=== PATIENT | male | born 1960 | race Caucasian/White ===

== ENCOUNTER → 2016-12-22 | Outpatient (CLI) | payer MEDICARE, MEDICAID ==
[2016-12-22 10:48] LABS: ABSOLUTE EOSINOPHILS # (AUTO) 0.2 10^3/uL (0.0-0.6); ABSOLUTE LYMPHOCYTES (AUTO) 1.9 10^3/uL (0.5-4.7); ABSOLUTE MONOCYTES (AUTO) 0.4 10^3/uL (0.1-1.4); ABSOLUTE NEUT (AUTO) 2.9 10^3/uL (1.7-8.2); BASOPHILS % (AUTO) 0.6 % (0-2); HEMATOCRIT 44.6 % (37.9-51.0); HEMOGLOBIN 15.2 g/dL (13.5-17.0); LYMPHOCYTES % (AUTO) 34.3 % (13-45); MEAN CORPUSCULAR HEMOGLOBIN 30.8 pg (27.0-33.4); MEAN CORPUSCULAR HGB CONC 34.1 g/dL (32.0-36.0); MEAN CORPUSCULAR VOLUME 90 fl (80-97); MONOCYTES % (AUTO) 8.1 % (3-13); RED BLOOD COUNT 4.95 10^6/uL (4.35-5.55); RED CELL DISTRIBUTION WIDTH 13.5 % (11.5-14.0); WHITE BLOOD COUNT 5.4 10^3/uL (4.0-10.5)
[2016-12-22 11:12] LABS: ALANINE AMINOTRANSFERASE 56 U/L (21-72); ALBUMIN 4.6 g/dL (3.5-5.0); ALKALINE PHOSPHATASE 158 U/L (38-126); ANION GAP 10 (5-19); ASPARTATE AMINO TRANSFERASE 39 U/L (17-59); BLOOD UREA NITROGEN 20 mg/dL (7-20); C-REACTIVE PROTEIN 5.5 mg/L (<10.0); CALCIUM 9.9 mg/dL (8.4-10.2); CARBON DIOXIDE 29 mmol/L (22-30); CHLORIDE 102 mmol/L (98-107); CREATINE KINASE 119 U/L (55-170); CREATININE RESULT 0.95 mg/dL (0.52-1.25); GLUCOSE 117 mg/dL (75-110); POTASSIUM 5.1 mmol/L (3.6-5.0); TOTAL PROTEIN 7.7 g/dL (6.3-8.2); URIC ACID 5.3 mg/dL (3.5-8.5)
[2016-12-22 11:17] LABS: ERYTHROCYTE SEDIMENTATION RATE 10 mm/hr (0-20)
== END ==
LOC: OD 09:47
PROVIDERS: ATTEND Internal Medicine Rheumatology
DX: M06.4 Inflammatory polyarthropathy (principal); M25.50 Pain in unspecified joint; M79.1 Myalgia; E03.8 Other specified hypothyroidism; G89.4 Chronic pain syndrome; M54.5 Low back pain; Z79.899 Other long term (current) drug therapy
CPT/HCPCS: 36415; 80053; 82550; 84550; 85025; 85652; 86038; 86140; 86200; 86430

== ENCOUNTER → 2017-11-20 | Outpatient (CLI) | payer MEDICARE, MEDICAID ==
--- NOTE | 2017-11-20 11:10 | RADIOLOGY REPORT (SQ) ---
EXAM DESCRIPTION: CHEST PA/LATERAL COMPLETED DATE/TIME: 11/20/2017 10:37 am REASON FOR STUDY: COUGH COMPARISON: 03/27/2016 NUMBER OF VIEWS: Two view. TECHNIQUE: Frontal and lateral radiographic views of the chest acquired. LIMITATIONS: None. FINDINGS: LUNGS AND PLEURA: No opacities, masses or pneumothorax. No pleural effusion. MEDIASTINUM AND HILAR STRUCTURES: No masses or contour abnormalities. HEART AND VASCULATURE: Heart normal size. No evidence for failure. BONY STRUCTURES: No acute findings. HARDWARE: None. OTHER: No other significant finding. IMPRESSION: NO SIGNIFICANT RADIOGRAPHIC FINDING IN THE CHEST. TECHNICAL DOCUMENTATION: JOB ID: [id number] [employer]- All Rights Reserved
== END ==
LOC: OD 10:26
PROVIDERS: ATTEND Physician Assistant
DX: R05 Cough (principal)
CPT/HCPCS: 71046

== ENCOUNTER → 2019-02-25 | Outpatient (CLI) | payer MEDICARE, MEDICAID ==
--- NOTE | 2019-02-25 11:29 | RADIOLOGY REPORT (SQ) ---
EXAM DESCRIPTION: U/S ABDOMEN LIMITED W/O DOP COMPLETED DATE/TIME: 02/25/2019 10:35 am REASON FOR STUDY: FATTY (CHANGE OF) LIVER, NOT ELSEWHERE CLASSIFIED K76.0 FATTY (CHANGE OF) LIVER, NOT ELSEWHERE CLASSIFIED COMPARISON: 08/03/2011 TECHNIQUE: Dynamic and static grayscale images acquired of the abdomen and recorded on PACS. Additio nal selected color Doppler and spectral images recorded. LIMITATIONS: None. FINDINGS: PANCREAS: Poorly seen. LIVER: Increased echogenicity. Hepatomegaly. 21.1 cm. LIVER VASCULATURE: Normal directional flow of the main portal vein and hepatic veins. GALLBLADDER: There is some echogenic material in the gallbladder. No wall thickening. No pericholec ystic fluid. ULTRASOUND-DETECTED CRUZ'S SIGN: Negative. INTRAHEPATIC DUCTS AND COMMON DUCT: CBD and intrahepatic ducts normal caliber. No filling defects. INFERIOR VENA CAVA: Not imaged. AORTA: No aneurysm. RIGHT KIDNEY: Normal size, 13.8 cm. Normal echogenicity. No solid or suspicious masses. No hydroneph rosis. No calcifications. PERITONEAL AND RIGHT PLEURAL SPACE: No ascites or effusions. OTHER: No other significant findings. IMPRESSION: Hepatomegaly. Fatty infiltration of the liver. Gallbladder sludge. No evidence of cho lecystitis. TECHNICAL DOCUMENTATION: JOB ID: [id number] [employer]- All Rights Reserved Reading location - IP/workstation name: [email or web address]
== END ==
LOC: RAD 09:32
PROVIDERS: ATTEND Physician Assistant
DX: K76.0 Fatty (change of) liver, not elsewhere classified (principal)
CPT/HCPCS: 76705

== ENCOUNTER 2019-10-18 07:42 | Emergency (ER) | payer MEDICARE, MEDICAID ==
[2019-10-18 08:44] LABS: ABSOLUTE LYMPHOCYTES (AUTO) 1.3 10^3/uL (0.5-4.7); ABSOLUTE MONOCYTES (AUTO) 0.7 10^3/uL (0.1-1.4); ABSOLUTE NEUT (AUTO) 11.5 10^3/uL (1.7-8.2); BASOPHILS % (AUTO) 0.1 % (0-2); HEMATOCRIT 46.8 % (37.9-51.0); HEMOGLOBIN 15.8 g/dL (13.5-17.0); LYMPHOCYTES % (AUTO) 9.3 % (13-45); MEAN CORPUSCULAR HEMOGLOBIN 30.3 pg (27.0-33.4); MEAN CORPUSCULAR HGB CONC 33.7 g/dL (32.0-36.0); MEAN CORPUSCULAR VOLUME 90 fl (80-97); MONOCYTES % (AUTO) 5.4 % (3-13); PLATELET COUNT 277 10^3/uL (150-450); RED CELL DISTRIBUTION WIDTH 13.3 % (11.5-14.0); SEGMENTED NEUTROPHILS % (AUTO) 85.2 % (42-78); TOTAL CELLS COUNTED % (AUTO) 100 %; WHITE BLOOD COUNT 13.6 10^3/uL (4.0-10.5)
[2019-10-18 08:50] LABS: ALBUMIN 4.8 g/dL (3.5-5.0); ALKALINE PHOSPHATASE 153 U/L (38-126); ANION GAP 13 (5-19); ASPARTATE AMINO TRANSFERASE 29 U/L (17-59); BILIRUBIN,DIRECT 0.2 mg/dL (0.0-0.4); BILIRUBIN,TOTAL 1.3 mg/dL (0.2-1.3); BLOOD UREA NITROGEN 13 mg/dL (7-20); CARBON DIOXIDE 27 mmol/L (22-30); CHLORIDE 97 mmol/L (98-107); GLUCOSE 179 mg/dL (75-110); POTASSIUM 4.6 mmol/L (3.6-5.0); TOTAL PROTEIN 8.6 g/dL (6.3-8.2)
[2019-10-18] MEDS ORDERED: METOCLOPRAMIDE HCL INJ/PF 10 MG/2 ML SDV IV ONE (10:00)
[2019-10-18] MEDS ORDERED: MORPHINE SULFATE 10 MG/ML INJ IV ONE (10:00)
--- NOTE | 2019-10-18 10:12 | ER Document Report ---
ED General - General Chief Complaint: Vomiting Stated Complaint: VOMITING/ABDOMINAL PAIN Time Seen by Provider: 10/18/19 10:00 Primary Care Provider: CHE FULLER PA [Primary Care Provider] - Follow up as needed TRAVEL OUTSIDE OF THE [place] IN LAST 30 DAYS: No - HPI Notes: Patient is a 59-year-old male with history of hypertension, coronary artery disease, diabetes who presents complaining of generalized abdominal pain, worse in his epigastrium has been fairly constant since last night with associated nausea and vomiting. Patient states that he has had some black stools recently and is not on any blood thinners. He has had decreased p.o. intake. He is still urinating normally. No surgical history to his abdomen. Denies any headache, fever, neck pain, URI, sore throat, chest pain, palpitations, syncope, cough, shortness of breath, wheeze, dyspnea,diarrhea, urinary retention, dysuria, hematuria, back pain, or rash. - Related Data Allergies/Adverse Reactions: gabapentin Adverse Reaction (Verified 10/18/19 09:02) tramadol [Tramadol] Adverse Reaction (Verified 10/18/19 07:58) Home Medications: patient states unable to provide at this time Past Medical History - Social History Smoking Status: Never Smoker Chew tobacco use (# tins/day): No Frequency of alcohol use: Rare Drug Abuse: None Family History: Reviewed & Not Pertinent Patient has suicidal ideation: No Patient has homicidal ideation: No - Past Medical History Cardiac Medical History: Reports: Hx Coronary Artery Disease - high cholesterol, Hx Heart Attack - [place] x 2 (2006), Hx Hypertension Pulmonary Medical History: Reports: Hx Pneumonia - walking pnemonia years ago Denies: Hx Asthma, Hx Bronchitis, Hx COPD Neurological Medical History: Denies: Hx Cerebrovascular Accident, Hx Seizures Endocrine Medical History: Reports: Hx Diabetes Mellitus Type 2 GI Medical History: Reports: Hx Gastroesophageal Reflux Disease Musculoskeletal Medical History: Reports Hx Arthritis - generalized Past Surgical History: - Immunizations Hx Diphtheria, Pertussis, Tetanus Vaccination: Yes Hx Pneumococcal Vaccination: 11/19/07 Review of Systems - Review of Systems -: Yes All other systems reviewed and negative Physical Exam - Vital signs Vitals: Temp Pulse Resp BP 97.6 F 65 18 151/70 H 10/18/19 07:51 10/18/19 07:51 10/18/19 07:51 10/18/19 07:51 - Notes Notes: PHYSICAL EXAMINATION: GENERAL: Well-appearing, well-nourished and in no acute distress. HEAD: Atraumatic, normocephalic. EYES: Pupils equal round and reactive to light, extraocular movements intact, sclera anicteric, conjunctiva are normal. ENT: Nares patent and without discharge. oropharynx clear without exudates. No tonsilar hypertrophy or erythema. Moist mucous membranes. NECK: Normal range of motion, supple without lymphadenopathy LUNGS: Breath sounds clear to auscultation bilaterally and equal. No wheezes rales or rhonchi. HEART: Regular rate and rhythm without murmurs, rubs, gallops. ABDOMEN: Soft, nondistended abdomen. No guarding, no rebound. Normal bowel sounds present. No CVA tenderness bilaterally. + reproducible moderate tenderness to palp of his epigastrum. + mild mid abd tenderness. Rectal: pt would not allow due to issues as a child- will provide stool sample. Musculoskeletal: FROM to passive/active. Strength 5+/5. Extremities: No cyanosis, clubbing, or edema b/l. Peripheral pulses 2+. Capillary refill less than 3 seconds. NEUROLOGICAL: Normal speech, normal gait. PSYCH: Normal mood, normal affect. SKIN: Warm, Dry, normal turgor, no rashes or lesions noted. Course - Re-evaluation Re-evalutation: 10/18/19 13:40 Patient is an afebrile, well-hydrated, 59-year-old male who presents to the ED with epigastric abdominal pain, nausea, vomiting, suspect viral/inflammatory. Vitals are acceptable without any significant tachycardia, tachypnea, or hypoxia. PE is otherwise unremarkable. CBC, CMP, lipase, guiac, CT scan unremarkable for any acute pathology. Patient was given Zofran and the GI cocktail. Patient states the GI cocktail did significantly improve his epigastric symptoms. No other labs or imaging warranted at this time based on H&P. Patient is tolerating p.o. without difficulties and is nontoxic-appearing. Low suspicion/risk for acute appendicitis, bowel obstruction, acute cholecystitis, perforated diverticulitis, incarcerated hernia, pancreatitis, perforated ulcer, peritonitis, sepsis, testicular torsion, or other systemic emergent condition at this time. Patient is aware that his condition can change from initial presentation and he needs to monitor symptoms closely and seek medical attention if any acute changes. I will send him home with a p rescription for omeprazole and Carafate as well as Zofran. Conservative measures otherwise for symptoms. Recheck with PCM in 3-5 days. Consider consult with a manager social work. Return to the ED with any worsening/concerning symptoms otherwise as reviewed in discharge. Patient is in agreement. - Vital Signs Vital signs: Temp Pulse Resp BP Pulse Ox 97.6 F 65 18 151/70 H 10/18/19 07:51 10/18/19 07:51 10/18/19 07:51 10/18/19 07:51 - Laboratory Result Diagrams: 10/18/19 08:30 10/18/19 08:30 Laboratory results interpreted by me: 10/18/19 10/18/19 10/18/19 08:30 08:30 11:20 WBC 13.6 H Lymph % (Auto) 9.3 L Absolute Neuts (auto) 11.5 H Seg Neutrophils % 85.2 H Chloride 97 L Glucose 179 H Alkaline Phosphatase 153 H Total Protein 8.6 H Urine Protein 30 H Urine Glucose (UA) >=500 H Urine Ketones TRACE H Urine Blood SMALL H Discharge - Discharge Clinical Impression: Epigastric abdominal pain Condition: Stable Disposition: HOME, SELF-CARE Instructions: Abdominal Pain ([facility]), Antinausea Medication ([facility]) Additional Instructions: Maintain adequate fluid and food intake [place] diet ([employer] Bananas, rice, apples, toast, etc tylenol if needed Monitor for any worsening symptoms Make sure you are staying hydrated enough to urinate and have normal BM's Recheck with your PCM in 3-5 days Consider consult with Gastroenterology for ongoing/worsening symptoms Return to the ED with any worsening symptoms and/or development of fever, headache, chest pain, palpitations, syncope, shortness of breath, trouble breathing, abdominal pain, n/v/d, blood in stool/urine, weakness, or other worsening symptoms that are concerning to you. Prescriptions: Sucralfate [Carafate] 1 gm PO BID #100 ml Omeprazole 20 mg PO DAILY #30 tablet. Ondansetron [Zofran Odt 4 mg Tablet] 1 - 2 tab PO Q4H PRN #15 tab.rapdis PRN Reason: For Nausea/Vomiting Forms: Elevated Blood Pressure Referrals: CHE FULLER PA [Primary Care Provider] - Follow up as needed BELKYS UMANA MD [ACTIVE STAFF] - Follow up as needed TONNY DOTSON MD [ACTIVE STAFF] - Follow up as needed
[2019-10-18] MEDS ORDERED: LIDOCAINE 2% VISCOUS SOLN 20 ML UDCUP PO ONE (11:51)
[2019-10-18] MEDS ORDERED: MAG HYDROX/AL HYDROX/SIMETH SUSP 30 ML UDCUP PO ONE (11:51)
[2019-10-18] MEDS ORDERED: METOCLOPRAMIDE HCL ORAL SOLN 10 MG/10 ML UDCUP PO ONE (11:51)
[2019-10-18 11:57] LABS: APPEARANCE,URINE CLEAR; BILIRUBIN,URINE NEGATIVE (NEGATIVE); COLOR,URINE YELLOW; GLUCOSE, URINE >=500 mg/dL (NEGATIVE); KETONES,URINE TRACE mg/dL (NEGATIVE); LEUKOCYTE ESTERASE,URINE NEGATIVE (NEGATIVE); NITRITE,URINE NEGATIVE (NEGATIVE); PROTEIN,URINE 30 mg/dL (NEGATIVE); URINE SPECIFIC GRAVITY 1.014; UROBILINOGEN,URINE NEGATIVE mg/dL (<2.0)
--- NOTE | 2019-10-18 13:34 | RADIOLOGY REPORT (SQ) ---
EXAM DESCRIPTION: CT ABD/PELVIS WITH IV ONLY COMPLETED DATE/TIME: 10/18/2019 1:20 pm REASON FOR STUDY: abdominal pain COMPARISON: None. TECHNIQUE: CT scan of the abdomen and pelvis performed using helical scanning technique with dynamic intravenous contrast injection. No oral contrast. Images reviewed with lung, soft tissue, and bone windows. Reconstructed coronal and sagittal MPR images reviewed. Delayed images for evaluation of the urinary system also acquired. All images stored on PACS. All CT scanners at this facility use dose modulation, iterative reconstruction, and/or weight based d osing when appropriate to reduce radiation dose to as low as reasonably achievable (ALARA). [facility]: Dose Right [facility]: CareDose [facility]: Dose Right [facility]: Teradose 4D [facility]: Membersuite CONTRAST TYPE AND DOSE: contrast/concentration: Isovue 350.00 mg/ml; Total Contrast Delivered: 99.0 ml; Total Saline Delivered: 57.0 ml RENAL FUNCTION: BUN 13 creatinine 0.87. RADIATION DOSE: CT Rad equipment meets quality standard of care and radiation dose reduction techniq ues were employed. CTDIvol: 20.5 - 21.1 mGy. DLP: 2458 mGy-cm.. LIMITATIONS: None. FINDINGS: LOWER CHEST: No significant findings. No nodules or infiltrates. LIVER: Normal size. No masses. No dilated ducts. SPLEEN: Normal size. No focal lesions. PANCREAS: No masses. No significant calcifications. No adjacent inflammation or peripancreatic fluid collections. Pancreatic duct not dilated. GALLBLADDER: No identified stones by CT criteria. No inflammatory changes to suggest cholecystitis. ADRENAL GLANDS: No significant masses or asymmetry. RIGHT KIDNEY AND URETER: No solid masses. No significant calcifications. No hydronephrosis or hyd roureter. LEFT KIDNEY AND URETER: No solid masses. No significant calcifications. No hydronephrosis or hydr oureter. AORTA AND VESSELS: No aneurysm. No dissection. Renal arteries, SMA, celiac without stenosis. RETROPERITONEUM: No retroperitoneal adenopathy, hemorrhage or masses. BOWEL AND PERITONEAL CAVITY: No masses or inflammatory changes. No free fluid or peritoneal masses. APPENDIX: Not visualized. PELVIS: No mass. No free fluid. Normal bladder. ABDOMINAL WALL: No masses. No hernias. BONES: No significant or acute findings. Degenerative changes in the spine. OTHER: No other significant finding. IMPRESSION: NO SIGNIFICANT OR ACUTE FINDING IN THE ABDOMEN OR PELVIS ON CT SCAN WITH IV CONTRAST. TECHNICAL DOCUMENTATION: JOB ID: [id number] Quality ID # [id number]: Final reports with documentation of one or more dose reduction techniques (e.g., Au tomated exposure control, adjustment of the mA and/or kV according to patient size, use of iterative reconstruction technique) 2010 [employer] All Rights Reserved Reading location - IP/workstation name: [email or web address]
[2019-10-18 14:45] VITALS: BP 148/80
== END 2019-10-18 14:45 | disposition home or self-care (01) ==
LOC: ER 07:42
DX: R10.13 Epigastric pain (principal); I10 Essential (primary) hypertension; I25.10 Atherosclerotic heart disease of native coronary artery without angina pectoris; E11.9 Type 2 diabetes mellitus without complications; R11.2 Nausea with vomiting, unspecified; E78.00 Pure hypercholesterolemia, unspecified; I25.2 Old myocardial infarction
CPT/HCPCS: 99284; 96374; 96375; 36415; 83690; 85025; 80053; 81001; 74177; J3490; A9270 ×2; J2765; J2270

== ENCOUNTER 2019-10-25 23:56 | Emergency (ER) | payer MEDICARE, MEDICAID ==
[2019-10-26 01:17] LABS: ABSOLUTE EOSINOPHILS # (AUTO) 0.1 10^3/uL (0.0-0.6); ABSOLUTE LYMPHOCYTES (AUTO) 1.1 10^3/uL (0.5-4.7); ABSOLUTE MONOCYTES (AUTO) 0.9 10^3/uL (0.1-1.4); ABSOLUTE NEUT (AUTO) 6.6 10^3/uL (1.7-8.2); BASOPHILS % (AUTO) 0.5 % (0-2); HEMATOCRIT 43.5 % (37.9-51.0); HEMOGLOBIN 14.6 g/dL (13.5-17.0); MEAN CORPUSCULAR HEMOGLOBIN 30.3 pg (27.0-33.4); MEAN CORPUSCULAR HGB CONC 33.6 g/dL (32.0-36.0); MEAN CORPUSCULAR VOLUME 90 fl (80-97); MONOCYTES % (AUTO) 10.2 % (3-13); PLATELET COUNT 289 10^3/uL (150-450); RED BLOOD COUNT 4.82 10^6/uL (4.35-5.55); RED CELL DISTRIBUTION WIDTH 14.1 % (11.5-14.0); SEGMENTED NEUTROPHILS % (AUTO) 75.3 % (42-78); TOTAL CELLS COUNTED % (AUTO) 100 %; WHITE BLOOD COUNT 8.8 10^3/uL (4.0-10.5)
[2019-10-26 01:26] LABS: APPEARANCE,URINE CLEAR; BILIRUBIN,URINE NEGATIVE (NEGATIVE); GLUCOSE, URINE >=500 mg/dL (NEGATIVE); KETONES,URINE NEGATIVE (NEGATIVE); LEUKOCYTE ESTERASE,URINE NEGATIVE (NEGATIVE); NITRITE,URINE NEGATIVE (NEGATIVE); PROTEIN,URINE NEGATIVE (NEGATIVE); URINE SPECIFIC GRAVITY 1.009
[2019-10-26 01:29] LABS: COLOR,URINE DARK YELLOW
[2019-10-26 01:32] LABS: ALBUMIN 4.1 g/dL (3.5-5.0); ALKALINE PHOSPHATASE 310 U/L (38-126); ANION GAP 11 (5-19); ASPARTATE AMINO TRANSFERASE 198 U/L (17-59); BILIRUBIN,TOTAL 4.2 mg/dL (0.2-1.3); BLOOD UREA NITROGEN 12 mg/dL (7-20); CALCIUM 9.9 mg/dL (8.4-10.2); CARBON DIOXIDE 26 mmol/L (22-30); CHLORIDE 98 mmol/L (98-107); GLUCOSE 216 mg/dL (75-110); POTASSIUM 4.8 mmol/L (3.6-5.0); TOTAL PROTEIN 7.8 g/dL (6.3-8.2)
[2019-10-26] MEDS ORDERED: ONDANSETRON HCL INJ/PF 4 MG/2 ML SDV IV ONE ×2 (04:08→07:13)
[2019-10-26] MEDS ORDERED: NORMAL SALINE 1000 ML 1,000 ML IV ONE (04:08)
[2019-10-26] MEDS ORDERED: MORPHINE SULFATE 10 MG/ML INJ IV ONE (04:08)
--- NOTE | 2019-10-26 04:13 | ER Document Report ---
ED GI/ - General TRAVEL OUTSIDE OF THE [place] IN LAST 30 DAYS: No - Related Data Home Medications: metformin, insulin prn, prilosec <ESMER GONZALEZ - Last Filed: 10/26/19 07:28> <CINDY BENNETT - Last Filed: 10/26/19 15:56> - General Chief Complaint: Epigastric Pain Stated Complaint: CHEST PAIN Time Seen by Provider: 10/26/19 04:01 Primary Care Provider: CHE FULLER PA [Primary Care Provider] - Follow up as needed Notes: Patient is a 59-year-old male that comes emergency department for chief complaint of upper abdominal pain. He states that he has barely eaten anything over the past few days because every time he eats he gets sharp pain in his upper abdomen that goes to his back. He denies vomiting however. He states that he was seen about a week ago, had a negative CAT scan and was sent home w ith "GI stuff". He states he has not improved. He denies fever/chills, chest pain. He denies any abdominal surgeries. Past medical history of CAD, [place], diabetes, hypertension. (ESMER GONZALEZ) - Related Data Allergies/Adverse Reactions: gabapentin Adverse Reaction (Verified 10/18/19 09:02) tramadol [Tramadol] Adverse Reaction (Verified 10/18/19 07:58) Past Medical History - General Information source: Patient - Social History Smoking Status: Never Smoker Frequency of alcohol use: Rare Drug Abuse: None Lives with: Family Family History: Reviewed & Not Pertinent Patient has suicidal ideation: No Patient has homicidal ideation: No - Past Medical History Cardiac Medical History: Reports: Hx Coronary Artery Disease - high cholesterol, Hx Heart Attack - [place] x 2 (2006), Hx Hypertension Pulmonary Medical History: Reports: Hx Pneumonia - walking pnemonia years ago Denies: Hx Asthma, Hx Bronchitis, Hx COPD Neurological Medical History: Denies: Hx Cerebrovascular Accident, Hx Seizures Endocrine Medical History: Reports: Hx Diabetes Mellitus Type 2 GI Medical History: Reports: Hx Gastroesophageal Reflux Disease Musculoskeletal Medical History: Reports Hx Arthritis - generalized Surgical Hx: Negative Past Surgical History: - Immunizations Hx Diphtheria, Pertussis, Tetanus Vaccination: Yes Hx Pneumococcal Vaccination: 11/19/07 <ESMER GONZALEZ - Last Filed: 12/08/19 07:28> Review of Systems - Review of Systems Constitutional: No symptoms reported EENT: No symptoms reported Cardiovascular: No symptoms reported Respiratory: No symptoms reported Gastrointestinal: See HPI Genitourinary: No symptoms reported Male Genitourinary: No symptoms reported Musculoskeletal: No symptoms reported Skin: No symptoms reported Hematologic/Lymphatic: No symptoms reported Neurological/Psychological: No symptoms reported <ESMER GONZALEZ - Last Filed: 10/26/19 07:28> Physical Exam <ESMER GONZALEZ - Last Filed: 10/26/19 07:28> - Vital signs Vitals: Temp Pulse Resp BP Pulse Ox 97.9 F 83 20 148/80 H 96 10/26/19 00:08 10/26/19 00:08 10/26/19 00:08 10/26/19 00:08 10/26/19 00:08 - Notes Notes: GENERAL: Alert, interacts well. No acute distress. HEAD: Normocephalic, atraumatic. EYES: Pupils equal, round, and reactive to light. Extraocular movements intact. ENT: Oral mucosa moist, tongue midline. Oropharynx unremarkable. NECK: Full range of motion. Supple. Trachea midline. LUNGS: Clear to auscultation bilaterally, no wheezes, rales, or rhonchi. No respiratory distress. HEART: Regular rate and rhythm. No murmur ABDOMEN: Generalized tenderness in the upper abdomen including epigastric, right upper quadrant, left upper quadrant. Lower abdomen is completely benign. Exam somewhat limited by obesity. GENITOURINARY: Deferred EXTREMITIES: Moves all 4 extremities spontaneously. No edema, normal radial and dorsalis pedis pulses bilaterally. No cyanosis. BACK: no cervical, thoracic, lumbar midline tenderness. No saddle anesthesia, normal distal neurovascular exam. Moves all extremities in full range of motion. NEUROLOGICAL: Alert and oriented x3. Normal speech. Cranial nerves II through XII grossly intact. PSYCH: Normal affect, normal mood. SKIN: Warm, dry, normal turgor. No rashes or lesions noted. (ESMER GONZALEZ) Course - Laboratory Result Diagrams: 10/26/19 00:50 10/26/19 00:50 <ESMER GONZALEZ - Last Filed: 10/26/19 07:28> - Laboratory Result Diagrams: 10/26/19 00:50 10/26/19 00:50 <CINDY BENNETT - Last Filed: 10/26/19 15:56> - Re-evaluation Re-evalutation: Patient is not in any obvious distress, vital signs unremarkable, he has generalized tenderness of the upper abdomen on exam. CBC unremarkable. Chemistry concerning with elevated AST, elevated alk phos, elevated direct bilirubin at 3, elevated lipase at greater than 14,000. Patient will be kept n.p.o., giving IV fluids, pain management. Urinalysis unremarkable. Ultrasound does confirm cholelithiasis, also possible polyp versus adherent stone. No overt cholecystitis. Based on patient's symptoms, laboratory work- up, presence of gallstones I strongly suspect gallstone pancreatitis. Patient will be kept n.p.o. I called and spoke with fruit grader operator, we do not have gastroenterology relocation associate or coming up. Patient will likely require ERCP. Patient will likely require transfer to tertiary center. I discussed with Dr. Jama, recommendation is to transfer to tertiary center for ERCP. I discussed with patient, he requests [facility]. 10/26/19 07:[address] Peralta, hospitalist at [facility], patient has been accepted for transfer. (ESMER GONZALEZ) 10/26/19 15:53 I accepted patient from KATHAR[facility] Mata at shift change this morning. I was then told that the patient transferred at approximately 1130 this morning but was not informed by staff. Patient's vital signs have been stable throughout and he denied any acute distress. Patient was stable for transfer to [facility] (CINDY BENNETT) - Vital Signs Vital signs: Temp Pulse Resp BP Pulse Ox 98.2 F 76 19 169/97 H 100 10/26/19 12:45 10/26/19 05:57 10/26/19 12:44 10/26/19 12:45 10/26/19 12:44 - Laboratory Laboratory results interpreted by me: 10/26/19 10/26/19 10/26/19 00:50 00:50 00:50 RDW 14.1 H Sodium 135.4 L Glucose 216 H Total Bilirubin 4.2 H Direct Bilirubin 3.0 H AST 198 H Alkaline Phosphatase 310 H Lipase 65374.9 H Urine Glucose (UA) >=500 H Urine Urobilinogen 2.0 H - EKG Interpretation by Me Additional EKG results interpreted by me: EKG shows sinus rhythm at a rate of 79, QTC of 445, normal axis, no T wave inversions or ST segment changes in consecutive leads. (ESMER GONZALEZ) Discharge <ESMER GONZALEZ - Last Filed: 10/26/19 07:28> <CINDY BENNETT - Last Filed: 10/26/19 15:56> - Discharge Clinical Impression: Pancreatitis Qualifiers: Chronicity: acute Pancreatitis type: unspecified pancreatitis type Acute pancreatitis complication: no infection or necrosis Qualified Code(s): K85.90 - Acute pancreatitis without necrosis or infection, unspecified Cholelithiasis Qualifiers: Cholelithiasis location: gallbladder Cholecystitis presence: without cholecystitis Biliary obstruction: with biliary obstruction Qualified Code(s): K80.21 - Calculus of gallbladder without cholecystitis with obstruction Vomiting Qualifiers: Vomiting type: unspecified Vomiting Intractability: non-intractable Nausea presence: with nausea Qualified Code(s): R11.2 - Nausea with vomiting, unspecified Condition: Stable Disposition: [facility] Referrals: CHE FULLER PA [Primary Care Provider] - Follow up as needed
--- NOTE | 2019-10-26 07:00 | RADIOLOGY REPORT (SQ) ---
EXAM DESCRIPTION: US ABDOMEN LIMITED COMPLETED DATE/TME: 10/26/2019 04:08 CLINICAL HISTORY: 59 years Male, elevated lipase, elevated bili, upper abd pain Comparison: CT, October 18, 2019 LIMITATIONS: Bowel gas and body habitus artifact. FINDINGS: Cholelithiasis and possible 0.4 cm adherent stone/benign polyp as well, negative sonographic Sullivan's test, 0.4 cm gallbladder wall thickness, partially obscured mild hepatic steatosis, a 0.5-cm diameter common bile duct, no intrahepatic ductal dilation, hepatopetal patent flow of the portal vein, 12.2-cm right kidney, partially obscured fat replaced pancreas, visualized vasculature/abdominal aorta, and no significant ascites appear otherwise unremarkable. IMPRESSION: No acute findings. Cholelithiasis. Hepatic steatosis. Likely benign 0.4 cm gallbladder polyp/adherent stone. Limitation.
[2019-10-26] MEDS ORDERED: NORMAL SALINE 1000 ML 1,000 ML IV PRN (07:13)
[2019-10-26] MEDS ORDERED: HYDROMORPHONE HCL INJ/PF 2 MG/ML AMPULE IV ONE (07:13)
--- NOTE | 2019-10-26 12:01 | EKG REPORT ---
SEVERITY:- NORMAL ECG - SINUS RHYTHM : Confirmed by: Eden De La Garza MD 26-Oct-2019 12:01:22
[2019-10-26 12:56] VITALS: BP 169/97
== END 2019-10-26 12:56 | disposition short-term general hospital (02) ==
LOC: ER 23:56
DX: K80.21 Calculus of gallbladder without cholecystitis with obstruction (principal); K85.90 Acute pancreatitis without necrosis or infection, unspecified; R11.2 Nausea with vomiting, unspecified; R10.13 Epigastric pain; R07.9 Chest pain, unspecified; R10.10 Upper abdominal pain, unspecified; I25.10 Atherosclerotic heart disease of native coronary artery without angina pectoris; I25.2 Old myocardial infarction; I10 Essential (primary) hypertension; E11.9 Type 2 diabetes mellitus without complications
CPT/HCPCS: 93005; 36415; 83690; 85025; 80053; 81001; 76705; 93010; J2270; J1170; J2405; J7030; 96361; 96374; 96375; 96376; 99285